=== PATIENT | male | born 1955 | race Native Hawaiian/Other Pacific Islander ===

== ENCOUNTER 2017-10-29 09:21 | Day surgery (SDC) | payer MEDICAID ==
[2017-10-25 08:37] VITALS: BMI 24.3
[~2017-10-29 09:21] MED LIST: Lidocaine 1%/Epinephrine 1:100000 30 ml vial IJ STA
[2017-10-29] MEDS ORDERED: Propofol 10 mg/ml Inj (20 ML) ONE (10:23)
[2017-10-29] MEDS ORDERED: Midazolam 2 MG/2 ML VIAL ONE (10:25)
[2017-10-29] MEDS ORDERED: ceFAZolin IV 2 gm in Dextrose 2 GM/50 ML BAG IVPB ONE (10:48)
[2017-10-29] MEDS ORDERED: Bupivacaine HCl 0.25% PF (10 ml) Inj ONE ×2 (10:48→11:47)
[2017-10-29] MEDS ORDERED: Lactated Ringer's 1,000 ML IV ONE ×2 (10:55→11:25)
[2017-10-29] MEDS ORDERED: Succinylcholine Chloride 20 mg/ml Syr (5 ml) IV ONE (11:21)
[2017-10-29] MEDS ORDERED: Sodium Chloride 0.9% 40 ML IV ONE (13:22)
[2017-10-29] MEDS ORDERED: Neostigmine Methylsulfate 3mg/3ml Syringe IV ONE (13:39)
[2017-10-29] MEDS ORDERED: HYDROmorphone 0.5 mg/0.5 ml ISec IVP PRN (13:49)
--- NOTE | 2017-10-29 14:08 | PCM.SURG1 ---
Surgeon's Initial Post Op Note - Surgeon's Notes Surgeon: John Dress Fitter: PGY4, Luiz SLOANO Type of Anesthesia: General Endo, Block Regional Pre-Operative Diagnosis: L inguinal hernia Operative Findings: see op note Post-Operative Diagnosis: L indirect inguinal hernia, R direct inguinal hernia Operation Performed: Robotic assisted bilateral inguinal hernia repair with mesh. TAP block Specimen/Specimens Removed: Cord lipoma Estimated Blood Loss: EBL {In ML}: 20 Blood Products Given: N/A Drains Used: No Drains Post-Op Condition: Good Date of Surgery/Procedure: 10/29/17 Time of Surgery/Procedure: 12:00
[2017-10-29] MEDS ORDERED: Oxycodone/Acetaminophen 5/325 mg Tab PO ONE ×2 (14:10→17:00)
[2017-10-29 16:48] VITALS: O2SAT 98
[2017-10-29 18:41] VITALS: BP 131/62; PULSE 78; RESP 20; TEMP 97.8
--- NOTE | 2017-10-29 22:42 | OP ---
PROCEDURE DATE: 10/29/2017 PREOPERATIVE DIAGNOSES: Left inguinal hernia, possible bilateral inguinal hernia. POSTOPERATIVE DIAGNOSES: 1. Left indirect inguinal hernia. 2. Right direct and indirect inguinal hernia. 3. 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 PROCEDURE DONE: 1. Robotic right inguinal hernia repair with a mesh. 2. Robotic left inguinal hernia repair with a mesh. 3. Robotic excision of the lipoma of the left spermatic cord. 4. Bilateral transverse abdominis plane block placement laparoscopically. SURGEON: The procedure was done Buck montelongo MD PHARMACEUTICAL SCIENTIST: RUSS Mohan and Amor Reyes, PGY-2 resident. ANESTHESIA: General endotracheal tube anesthesia. ESTIMATED BLOOD LOSS: Around 10 mL. DRAINS: None. PATHOLOGY: The lipoma of the cord was sent for the pathology. COMPLICATIONS: None. INTRAOPERATIVE FINDINGS: The patient had a left complete indirect inguinal hernia and patient also had right direct inguinal as well as very small indirect hernial sac and defect, and patient also had a lipoma of the left spermatic cord. DESCRIPTION OF PROCEDURE: On intraoperative steps, this 62-year-old male was diagnosed with a left inguinal hernia and the patient was consented for the robotic left inguinal hernia repair with a mesh, possible bilateral repair. Patient was brought to the OR, placed supine on operating table. After induction of the anesthesia, abdomen was prepped and draped in usual sterile fashion and supraumbilical transverse incision was made after incising skin and subcutaneous tissue. The fascia was incised. The camera port was placed. Another three 8-mm port was placed in upper abdomen and after when the robot was brought in, camera arm as well as arm 1 and arm 2 was docked. The pelvic exploration was done. Patient found to have left indirect inguinal hernia and patient also had right indirect hernial sac and defect as well as direct defect and the intraoperative decision was made to do the bilateral repair and the peritoneum was dissected from the left ASIS up to the right ASIS and the dissection was carried down midline up to the space of Retzius and laterally to the lateral abdominal wall and medially the vas deferens as well as spermatic cord vessels were identified and the large lipoma of the cord was reduced back into the peritoneal cavity and it was excised and it was sent to the table for pathology, and thus now, peritoneal sac was complete on the left side and the dissection was carried down to reduce the whole sac and the inferior peritoneal reflection dissection was done. Now, the dissection was continued on the right side and the lateral abdominal wall dissection was done. The vas deference as well as spermatic cord vessels were identified and the sac was reduced back on the right indirect defect and the patient also had direct defect that was also visualized and the inferior peritoneal reflection dissection was done. Now, the left anatomical mesh as well as the right anatomical mesh was placed and both mesh was implanted. After proper implantation of the mesh, the peritoneum was sutured with 2-0 Vicryl V-Loc sutures and now the procedure was converted to be laparoscopic after removing all the instruments and undocking the robot and bilateral TAP block was given. The left and right superior and inferior transverse abdominis muscle block was given with 20 mL of Marcaine on each side and after a proper TAP block, all the port was taken out under vision. Pneumo was deflated. Umbilical port site was closed in 2 layers, the fascia with 0 Vicryl interrupted sutures, skin with 4-0 Monocryl, and the dry sterile dressing was applied. Patient tolerated procedure well. Count of instrument and gauze was correct. There was no apparent complication. Patient was extubated in the OR, sent to the Postanesthesia Care Unit in stable condition. Buck Lopez MD
== END 2017-10-29 18:40 | disposition home or self-care (01) ==
LOC: C.SDS 09:21
PROVIDERS: ATTEND Surgery Surgical Critical Care
DX: K40.20 Bilateral inguinal hernia, without obstruction or gangrene, not specified as recurrent (principal); D17.6 Benign lipomatous neoplasm of spermatic cord
CPT/HCPCS: 49650; 55520; 82948; 88304; J0690; J1170; J2250; J2405; J2704; J2710; J2765; J3010; J7120